=== PATIENT | male | born 1960 | race African-American/Black ===

== ENCOUNTER 2017-01-20 17:38 | Emergency (ER) | payer MEDICAID ==
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
[2017-01-20] MEDS ORDERED: HYDROCODONE/ACETAMINOPHEN 5-325 MG TABLET PO ONE (18:35)
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
[2017-01-20 20:10] VITALS: BP 130/84
== END 2017-01-20 20:08 | disposition home or self-care (01) ==
LOC: ER 17:38
DX: S16.1XXA Strain of muscle, fascia and tendon at neck level, initial encounter (principal); S39.012A Strain of muscle, fascia and tendon of lower back, initial encounter; M25.561 Pain in right knee; M25.562 Pain in left knee; M54.2 Cervicalgia; M54.9 Dorsalgia, unspecified; V87.7XXA Person injured in collision between other specified motor vehicles (traffic), initial encounter
CPT/HCPCS: 72070; 72110; 99284